=== PATIENT | female | born 1955 | race African-American/Black ===

== ENCOUNTER → 2016-10-25 | Outpatient (CLI) | payer OTHER ==
[2014-06-29 10:40] VITALS: BP 104/60
[~2016-10-25] MED LIST: FLUT1DIS3 IH; GABA-586 PO; LINA145C PO; LISI40TA PO; METF500T9 PO; PARO20TA3 PO; PROAIR HFA8.5 GM INH; RIZA10TA PO; TOPI100T8 PO; VERA240C2 PO
--- NOTE | 2016-10-25 14:34 | CARD ---
APPROVED REPORT EXAM: Two-dimensional and M-mode echocardiogram with Doppler and color Doppler. Other Information Quality : GoodHR: 66bpm Rhythm : NSR INDICATION Chest tightness and pressure, Exertional shortness of breath RISK FACTORS Hypertension Obesity 2D DIMENSIONS RVDd3.2 (2.9-3.5cm)Left Atrium(2D)3.3 (1.6-4.0cm) IVSd0.7 (0.7-1.1cm)Aortic Root(2D)3.0 (2.0-3.7cm) LVDd5.3 (3.9-5.9cm)LVOT Diameter2.1 (1.8-2.4cm) PWd0.8 (0.7-1.1cm)LVDs3.5 (2.5-4.0cm) FS (%) 34.0 %SV85.1 ml LVEF(%)63.0 (>50%) Aortic Valve AoV Peak Bentley.128.4cm/sAoV VTI27.4cm AO Peak GR.6.6mmHgLVOT Peak Bentley.109.7cm/s AO Mean GR.3mmHgAVA (VMAX)2.91cm2 Mitral Valve MV E Ovgrksxk31.2cm/sMV E Peak Gr.3mmHg MV DECEL [id number] A Alfifrio319.5cm/s MV E Mean Gr.1mmHgE/A Ratio0.8 MV A [id number] Pulmonary Valve PV Peak Lbginheu68.4cm/s Pulmonary Vein S1 Qgwylgue00.9cm/sD2 Jgpmappa38.9cm/s PVa [id number] LEFT VENTRICLE The left ventricle is normal size. There is normal left ventricular wall thickness. The left ventricu lar systolic function is normal and the ejection fraction is within normal range. The Ejection Fracti on is 63%. There is normal LV segmental wall motion. Transmitral Doppler flow pattern is Grade I-abno rmal relaxation pattern. RIGHT VENTRICLE The right ventricle is normal size. There is normal right ventricular wall thickness. The right ventr icular systolic function is normal. ATRIA The left atrium size is normal. The right atrium size is normal. The interatrial septum is intact wit h no evidence for an atrial septal defect or patent foramen ovale as noted on 2-D or Doppler imaging. AORTIC VALVE The aortic valve is mildly thickened. The aortic valve is trileaflet. Doppler and Color Flow revealed no significant aortic regurgitation. There is no significant aortic valvular stenosis. MITRAL VALVE The mitral valve leaflets are mildly thickened. There is no evidence of mitral valve prolapse. There is no mitral valve stenosis. Doppler and Color Flow revealed no mitral valve regurgitation noted. TRICUSPID VALVE Doppler and Color Flow revealed no tricuspid valve regurgitation noted. Unable to determine pulmonary artery pressure at exam time. PULMONIC VALVE The pulmonic valve is not well visualized but appears to open well. Doppler and Color Flow revealed t race pulmonic valvular regurgitation. GREAT VESSELS The aortic root is normal in size. The ascending aorta is normal in size. The pulmonary artery is nor mal. The IVC is normal in size and collapses >50% with inspiration. PERICARDIAL EFFUSION There is no evidence of significant pericardial effusion. Critical Notification Critical Value: No <Conclusion> The left ventricular systolic function is normal and the ejection fraction is within normal range. The Ejection Fraction is 63%. Transmitral Doppler flow pattern is Grade I-abnormal relaxation pattern. The left atrium size is normal. The right atrium size is normal. The aortic valve is mildly thickened. The aortic valve is trileaflet. The mitral valve leaflets are mildly thickened. Doppler and Color Flow revealed no tricuspid valve regurgitation noted. Unable to determine pulmonary artery pressure at exam time. The pulmonic valve is not well visualized but appears to open well. Doppler and Color Flow revealed trace pulmonic valvular regurgitation. There is no evidence of significant pericardial effusion.
== END | disposition home or self-care (01) ==
LOC: ECHO 10:01
PROVIDERS: ATTEND Internal Medicine Cardiovascular Disease
DX: I10 Essential (primary) hypertension (principal); E66.9 Obesity, unspecified; G47.33 Obstructive sleep apnea (adult) (pediatric); E11.9 Type 2 diabetes mellitus without complications; R07.89 Other chest pain; R06.02 Shortness of breath
CPT/HCPCS: 93306

== ENCOUNTER 2017-06-21 12:08 | Emergency (ER) | payer OTHER ==
[2017-06-21 13:17] LABS: BILIRUBIN,URINE NEGATIVE (NEG); COLOR,URINE YELLOW; GLUCOSE,URINE NEGATIVE (NEG); NITRITE,URINE NEGATIVE (NEG); PH,URINE 7.5; PROTEIN,URINE NEGATIVE (NEG-TRACE); UROBILINOGEN,URINE 0.2 mg/dL (0.2 mg/dL)
[2017-06-21 13:27] LABS: CLARITY,URINE HAZY; SQUAMOUS EPITHELIAL CELL,UR MOD /LPF
[2017-06-21 13:28] LABS: ADD MAN DIFF? NO; AMORPHOUS SEDIMENT,UR PRESENT /HPF; BACTERIA,URINE FEW /HPF (0-FEW); RBC,URINE 0 /HPF (0-2); WBC,URINE OCC /HPF (0-4)
[2017-06-21 13:31] LABS: BASO # 0.1 x10^3/uL (0.0-0.2); BASO % 1 % (0-3); EOS # 0.3 x10^3/uL (0.0-0.7); EOS % 6 % (0-3); HEMOGLOBIN 12.3 g/dL (12.0-15.5); LYMPH # 1.2 x10^3/uL (1.0-4.8); LYMPH % 23 % (24-48); MEAN CORPUSCULAR HEMOGLOBIN 30 pg (25-35); MEAN CORPUSCULAR HGB CONC 33 g/dL (31-37); MEAN CORPUSCULAR VOLUME 89 fL (79-100); MONO # 0.8 x10^3/uL (0.0-1.1); MONO % 14 % (0-9); NEUT # 3.1 x10^3uL (1.8-7.7); NEUT % 56 % (31-73); PLATELET COUNT 288 x10^3/uL (140-400); RED BLOOD COUNT 4.15 x10^6/uL (3.50-5.40); RED CELL DISTRIBUTION WIDTH 13.8 % (11.5-14.5); WHITE BLOOD COUNT 5.4 x10^3/uL (4.0-11.0)
[2017-06-21] MEDS: MECLIZINE HCL 12.5 MG TABLET. PO (13:35)
[2017-06-21 13:41] LABS: ANION GAP 7 (6-14); BLOOD UREA NITROGEN 12 mg/dL (7-20); BUN/CREATININE RATIO 11 (6-20); CALCIUM 9.3 mg/dL (8.5-10.1); CARBON DIOXIDE 26 mmol/L (21-32); CHLORIDE 106 mmol/L (98-107); CREATININE 1.1 mg/dL (0.6-1.0); GFR 61.5; GLUCOSE 87 mg/dL (70-99); POTASSIUM 4.5 mmol/L (3.5-5.1); SODIUM 139 mmol/L (136-145)
[2017-06-21 13:48] LABS: ALBUMIN 3.6 g/dL (3.4-5.0); ALBUMIN/GLOBULIN RATIO 0.8 (1.0-1.7); ALK PHOS 96 U/L (46-116); ALT (SGPT) 23 U/L (14-59); AST (SGOT) 17 U/L (15-37); LIPASE 118 U/L (73-393); TOTAL BILIRUBIN 0.2 mg/dL (0.2-1.0); TOTAL PROTEIN 8.3 g/dL (6.4-8.2)
[2017-06-21] MEDS ORDERED: METOCLOPRAMIDE HCL 10 MG/2 ML VIAL. IV (14:15)
[2017-06-21] MEDS ORDERED: diphenhydrAMINE 50 MG/ML VIAL IVP (14:15)
[2017-06-21] MEDS: diphenhydrAMINE 50 MG/ML VIAL IVP (14:44)
[2017-06-21] MEDS: IV NORMAL SALINE 500ML BAG 500 ML IV (14:44)
[2017-06-21] MEDS: METOCLOPRAMIDE HCL 10 MG/2 ML VIAL. IV (14:44)
== END 2017-06-21 15:29 | disposition home or self-care (01) ==
LOC: ER 12:08
DX: R42 Dizziness and giddiness (principal); R11.0 Nausea; R51 Headache; J45.909 Unspecified asthma, uncomplicated; E11.9 Type 2 diabetes mellitus without complications; I10 Essential (primary) hypertension; G43.909 Migraine, unspecified, not intractable, without status migrainosus; K58.9 Irritable bowel syndrome, unspecified; Z88.2 Allergy status to sulfonamides; Z90.710 Acquired absence of both cervix and uterus; Z91.040 Latex allergy status
CPT/HCPCS: 36415; 70450; 80053; 81001; 83690; 85025; 96361; 96374; 96375; 99285-25; J1200; J2765; J7040; J8597

== ENCOUNTER → 2017-11-24 | Outpatient (CLI) | payer OTHER ==
[2017-11-24] MEDS: ZOLPIDEM 5 MG TABLET. PO (22:36)
== END | disposition home or self-care (01) ==
LOC: RT 18:09
DX: G47.33 Obstructive sleep apnea (adult) (pediatric) (principal); I10 Essential (primary) hypertension; J45.909 Unspecified asthma, uncomplicated; G47.61 Periodic limb movement disorder; G43.909 Migraine, unspecified, not intractable, without status migrainosus; Z82.49 Family history of ischemic heart disease and other diseases of the circulatory system
CPT/HCPCS: 95811